=== PATIENT | female | born 1935 | race Caucasian/White ===

== ENCOUNTER → 2017-04-20 | Outpatient (CLI) | payer MEDICARE ==
[~2017-04-20] MED LIST: ACET500T68 PO; AMLO-96 PO; CALC400T65 PO; CALC500T6 PO; CARB-71 PO; ESTR-33 PO; ESTR0.9T14 PO; FLU180SY9 IM; HYDR-2966 PO; HYDR12.556 PO; INDO25OR3 PO; INDO50CA92 PO; LISI20TA29 PO; MULT-865 PO; PNEU0.5D3 IM; TRIA-20 PO
--- NOTE | 2017-04-21 11:06 | RADIOLOGY IMAGING REPORT ---
FACILITY: [facility] [place] PATIENT NAME: OBEY OVALLE : [id number] MR: [id number] V: [id number] EXAM DATE: [id number] ORDERING PHYSICIAN: URI PINZON TECHNOLOGIST: Radha Ghotra PROCEDURE:BILATERAL DIGITAL SCREENING MAMMOGRAM WITH CAD ASSISTED INTERPRETATION AND 3D BREAST TOMOSYNTHESIS. COMPARISON:Prior mammograms dated 04/06/16, 02/20/15, 02/06/14, 01/25/13, 01/19/12 and 01/01/11. INDICATIONS:SCREENING FINDINGS: Moderately dense fibroglandular tissue is seen throughout the breasts. The parenchymal pattern has remained stable when allowing for difference in mammographic technique and patient positioning. There is no evidence of malignant appearing mass, malignant appearing calcification or other secondary sign of malignancy in either breast. A biopsy clip is seen deep central within the left breast unchanged. DIAGNOSTIC CATEGORY 2--BENIGN FINDING. RECOMMENDATIONS: ROUTINE MAMMOGRAM AND CLINICAL EVALUATION. IMPRESSION: BI-RADS 2: No significant abnormality seen. Images were reviewed with R2CAD and 3D breast tomosynthesis. Dictated by: Kia Landa M.D. on 04/20/2017 at 16:47 Transcribed by: ELEANOR on 04/20/2017 at 18:14 Approved by: Kia Landa M.D. on 04/21/2017 at 11:05 [facility]
== END ==
LOC: MAMO 02:10
PROVIDERS: ATTEND Family Medicine
DX: Z12.31 Encounter for screening mammogram for malignant neoplasm of breast (principal)
CPT/HCPCS: 77063; 77067

== ENCOUNTER → 2017-06-02 | Outpatient (CLI) | payer MEDICARE ==
[~2017-06-02] MED LIST changes: +DUL20 PO
[2017-06-02 11:37] LABS: PLATELET COUNT, AUTOMATED 272 K/uL (150-450)
== END ==
LOC: LAB 11:17
PROVIDERS: ATTEND Family Medicine
DX: I10 Essential (primary) hypertension (principal)
CPT/HCPCS: 36415; 82040; 82247; 82310; 82374; 82435; 82565; 82947; 84075; 84132; 84155; 84295; 84450; 84460; 84520; 85025

== ENCOUNTER → 2017-06-25 | Outpatient (CLI) | payer MEDICARE ==
--- NOTE | 2017-06-25 12:56 | RADIOLOGY IMAGING REPORT ---
FACILITY: [facility] PATIENT NAME: Magda Villanueva : 1935 MR: [id number] V: [id number] EXAM DATE: ORDERING PHYSICIAN: URI PINZON TECHNOLOGIST: Location: [facility] Patient: Magda Villanueva : 1935 Visit/Account:[id number] Date of Sevice: 06/25/2017 Exam type: CHEST PA AND LAT History: heavy smoker, hot flashes, cough Comparison: April 20, 2012. Findings: The lungs are free of acute effusions, infiltrates or edema. There are multiple small calcified gran ulomas seen throughout the lungs. This mild hyperinflation. The cardiac silhouette is normal in siz e. There is mild ectasia thoracic aorta and moderate spondylotic changes of the thoracic spine IMPRESSION: 1. Mild hyperinflation lung escalera Multiple calcified granulomas seen throughout the lungs Report Dictated By: Kia Landa MD at 06/25/2017 11:52 AM Report E-Signed By: Kia Landa MD at 06/25/2017 12:53 PM WSN:[email or web address]
== END ==
LOC: RAD 11:16
PROVIDERS: ATTEND Family Medicine
DX: I77.810 Thoracic aortic ectasia (principal); R91.8 Other nonspecific abnormal finding of lung field; M47.894 Other spondylosis, thoracic region
CPT/HCPCS: 71046

== ENCOUNTER → 2017-10-20 | Outpatient (CLI) | payer MEDICARE ==
[~2017-10-20] MED LIST changes: +DULO20CA3 PO; +DULO40CA2 PO; +INDO-23 PO; -INDO50CA92 PO
[2017-10-20 15:50] LABS: PLATELET COUNT, AUTOMATED 229 K/uL (150-450)
== END ==
LOC: LAB 15:28
PROVIDERS: ATTEND Family Medicine
DX: I10 Essential (primary) hypertension (principal); R53.83 Other fatigue
CPT/HCPCS: 36415; 82040; 82247; 82310; 82374; 82435; 82565; 82947; 84075; 84132; 84155; 84295; 84443; 84450; 84460; 84520; 85025

== ENCOUNTER → 2018-02-02 | Outpatient (CLI) | payer MEDICARE ==
[~2018-02-02] MED LIST changes: +AMLO-111 PO; -AMLO-96 PO; +FLU180SY11 IM; +IPRN ENA
== END ==
LOC: LAB 10:20
PROVIDERS: ATTEND Family Medicine
DX: E87.6 Hypokalemia (principal)
CPT/HCPCS: 36415; 82310; 82374; 82435; 82565; 82947; 84132; 84295; 84520

== ENCOUNTER 2018-04-21 18:06 | Inpatient (IN) | payer MEDICARE ==
[~2018-04-21] VITALS: Ht 165.1 cm; Wt 54.4 kg
[~2018-04-21 18:06] MED LIST changes: -NAPR220C12 PO
--- NOTE | 2018-04-21 18:23 | ER Report ---
History and Physical Time Seen By MD: 18:19 HPI/ROS CHIEF COMPLAINT: Dyspnea HISTORY OF PRESENT ILLNESS: 82-year-old female presented urgent care with 4 days of increasing shortness of breath. Patient actually states 1 week of upper respiratory symptoms, which she thought was a cold. Patient has hot flashes since she is on estrogen replacement therapy. She's unsure if she had any fevers. She notes a very congested cough of mostly clear sputum. She notes no leg swelling or chest pain. She notes increased shortness of breath. She is a chronic smoker. Her last pulse ox was 88% at her internal medicine visit back in January of last year. Patient is not on home O2. Patient was seen in urgent care and found to have an elevated troponin to 0.060. She has no previous troponins every. She has no previous EKGs in the system. Per report. Influenza A and B were negative at [facility] urgent care REVIEW OF SYSTEMS: Respiratory: As above Cardiovascular: No chest pain, no palpitations. Gastrointestinal: No vomiting, no abdominal pain. Musculoskeletal: No back pain. Allergies: Coded Allergies: No Known Drug Allergies (Verified , 01/18/12) Home Meds Active Scripts Ipratropium [place] 0.03% Ns (IPRATROPIUM BROMIDE 0.03% NS) 21 Mcg [place], 2 SPRAYS MIRTA 1-2XD for 30 Days, #1 SPRAY Prov:URI PINZON MD 02/02/18 Duloxetine HCl (Duloxetine HCl) 20 Mg Capsule.dr, 2 CAP PO DAILY for 90 Days, #180 CAP 4 Refills Prov:URI PINZON MD 09/13/17 Hydrochlorothiazide (HYDROCHLOROTHIAZIDE) 25 Mg Tablet, 1 TAB PO QDAY for 90 Days, #90 TAB 4 Refills Prov:URI PINZON MD 09/13/17 Lisinopril (LISINOPRIL) 20 Mg Tablet, 1 TAB PO QDAY for 90 Days, #90 TAB 4 Refills Prov:URI PINZON MD 09/13/17 Amlodipine Besylate (AMLODIPINE BESYLATE) 5 Mg Tablet, 1 TAB PO QDAY for 90 Days, #90 TAB 4 Refills Prov:URI PINZON MD 09/13/17 Indomethacin (INDOMETHACIN) 50 Mg Capsule, 1 CAP PO DAILY for 90 Days, #90 CAPSULE Prov:URI PINZON MD 09/08/17 Reported Medications Naproxen Sodium (ALEVE) 220 Mg Capsule, 220 MG PO TID, CAPSULE 04/21/18 Soy Isofla/Blk Cohosh/Mag Bark (Estroven 155 mg Capsule) 155 Mg Capsule 02/15/18 Acetaminophen (TYLENOL EXTRA STRENGTH) 500 Mg Tablet, 1 TAB PO PRN, TAB 03/31/17 Calcium Carbonate (CALCIUM) 500 Mg Tablet, 750 MG PO DAILY 03/31/17 Multivitamin (DAILY MULTIPLE VITAMIN) Unknown Strength Tablet, 1 TAB PO DAILY 10/23/16 Discontinued Reported Medications Carbidopa/Levodopa (SINEMET 25-100 MG TABLET) 1 Each Tablet, 1 EACH PO PRN 10/23/16 Past Medical/Surgical History Past, Family, & Social History Past Medical History Reviewed: Yes Updated: Social Hx Neurologic: Reports hx of: restless leg syndrome Cardiovascular: Reports hx of: hypertension (essential) Respiratory: Reports hx of: COPD Gastrointestinal: Reports hx of: other GI history (hx of colon polyp) Age at menopause: Menopausal sx Musculoskeletal: Reports hx of: osteoarthritis (multiple sistes) other musculoskeletal hx (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, polymyalgia rheumatica possible, sciatica) Infectious disease: Reports hx of: Rheumatic fever (as child) Gastrointestinal: Reports hx of: appendectomy cholecystectomy Gynecologic: Reports hx of: hysterectomy (fibroids, partial ) Musculoskeletal: Reports hx of: total joint replacement (Implants bilaterally in big toe, orthoscopic surgery right knee) Reviewed Nurses Notes: Yes Old Medical Records Reviewed: Yes Hx Smoking: Yes (50 YEARS) Smoking Status: Current: Every Day Smoker Exposure to Second Hand Smoke?: Yes Constitutional Vital Sign - Last 24 Hours 04/21/18 04/21/18 04/21/18 04/21/18 18:20 18:22 18:30 18:36 Temp 98.1 Pulse 120 111 Resp 22 16 B/P (MAP) 137/78 (97) 117/79 117/79 (92) Pulse Ox 77 92 O2 Delivery Room Air 04/21/18 04/21/18 04/21/18 04/21/18 18:44 18:44 18:58 19:00 Pulse 104 Resp 18 B/P (MAP) 107/85 (92) Pulse Ox 93 O2 Delivery Oxy Mask O2 Flow Rate 10.0 10.0 1/31/04/21/18 04/21/18 04/21/18 19:06 19:24 19:30 19:36 Temp 99.0 Pulse 110 107 Resp 16 15 B/P (MAP) 121/62 (81) Pulse Ox 94 95 04/21/18 04/21/18 04/21/18 04/21/18 19:41 20:00 20:11 20:30 Pulse 105 98 Resp 19 17 B/P (MAP) 116/76 (89) 134/77 (96) Pulse Ox 95 95 Physical Exam General Appearance: The patient is alert, has no immediate need for airway protection and no current signs of toxicity. Obvious increased work of breathing. Grossly hypoxic, room. Her pulse ox comes in at 77% here. Patient's placed on a simple mask to supplement her O2. She appears slightly pale. Skin is warm and dry. HEENT: Pupils equal and round no injection. TMs normal, oropharynx with mild erythema, no exudate or petechiae Respiratory: Chest is non tender, bibasilar rails approximately a [address] with faint expiratory wheezing Cardiac: regular rate and rhythm Gastrointestinal: Abdomen is soft and non tender, no masses, bowel sounds normal. Musculoskeletal: Neck: Neck is supple and non tender. No JVD, no lymphadenopathy Extremities have full range of motion and are non tender. No edema, no calf tenderness Skin: No rashes or lesions. DIFFERENTIAL DIAGNOSIS: After history and physical exam differential diagnosis was considered for shortness of breath including but not limited to pulmonary infectious process, COPD, asthma, pulmonary embolus and congestive heart failure. Medical Decision Making Data Points Result Diagram: 04/22/18 0552 04/22/18 0552 Laboratory Hematology Test 04/21/18 18:26 04/21/18 18:28 04/21/18 19:44 D-Dimer Quantitative (PE/DVT) 1.31 ug/ml (0-0.50) B-Type Natriuretic Peptide 320 pg/ml (0-100) Lactate 1.5 mmol/L (0.7-2.1) Troponin I 0.056 ng/ml Chemistry Test 04/21/18 18:26 04/21/18 18:28 04/21/18 19:44 D-Dimer Quantitative (PE/DVT) 1.31 ug/ml (0-0.50) B-Type Natriuretic Peptide 320 pg/ml (0-100) Lactate 1.5 mmol/L (0.7-2.1) Troponin I 0.056 ng/ml Coagulation Test 04/21/18 18:26 D-Dimer Quantitative (PE/DVT) 1.31 ug/ml Microbiology Microbiology Date/Time Source Procedure Growth Status 04/21/18 18:26 Blood Peripheral Draw Blood Culture - Preliminary NO GROWTH AFTER 1 DAY, REINCUBATED Resulted EKG/Imaging EKG Interpretation 12 lead EKG: EKG sent over from urgent care Rhythm: Sinus tachycardia, very faint, difficult interpretation. Due to wandering baseline [place]: normal QRS: normal ST segments: normal, a repeat EKG will be performed here on arrival to the ER. 12 lead EK Rhythm: Sinus tachycardia, rate 109, right bundle branch block pattern [place]: normal QRS: Right bundle branch block pattern ST segments: Nonspecific T and T-wave changes related to right bundle branch block, no old EKGs for comparison Imaging X-ray: Two-view chest x-ray from urgent care today was obtained. I viewed the images myself on the PACS system. My interpretation of the images is: Bilateral faint pulmonary vascular congestion, there are numerous micronodules consistent on her old chest x-ray. Dated 06/25/17. The radiologist interpretation had no clinically significant variation from this interpretation. Results: CT scan of the CTA pulmonary angiogram was obtained. The results of the study are CT ANGIOGRAM OF THE CHEST WITH INTRAVENOUS CONTRAST, PE PROTOCOL DATE OF EXAM: 04/21/2018 19:05 COMPARISON: Chest radiographs June 25, 2017. INDICATION: dyspnea. TECHNIQUE: Contrast enhanced chest CT performed during the injection of 75 ml of Isovue-370. Three-dimensional (MIP) reconstructions were performed. FINDINGS: Negative for pulmonary arterial embolus. Thyroid: The thyroid is irregularly shaped and enlarged with a lobulation extending inferiorly into the mediastinum. There is also notably enlarged lymph node in the anterior mediastinum/thoracic inlet on image 64 series 7. Heart and great vessels: Heart size is normal. Coronary atherosclerosis is prominent. Moderate aortic arch atherosclerosis. Mediastinum and casandra: There is extensive bilateral hilar adenopathy somewhat more prominent on the right than left. Lungs and pleura: Mild to moderate centrilobular emphysema. There are scattered granulomas. Scarring and/or atelectasis in the lingula. No effusion, consolidation, or pneumothorax. Breast and axilla: Breast tissue is not well imaged by CT. Bones and soft tissues: No acute osseous abnormality. Multilevel degenerative findings. Severe right glenohumeral degenerative findings. Multiple intra- articular loose bodies. Upper abdomen: There is reflux of contrast into the hepatic veins. IMPRESSION: 1. Negative for pulmonary arterial embolus. 2. Bulky hilar adenopathy is nonspecific, but a neoplastic etiology is po ssible. Correlate with clinical history thereof and/or consider biopsy. 3. The thyroid is enlarged and irregularly shaped which may reflect a multinodular goiter, but other abnormality is not excluded. Consider nonemergent ultrasound. 4. [id number] centrilobular emphysema. 5. Reflux of contrast into the hepatic veins may be incidental but can be seen with right heart dysfunction. The study was read by the radiologist. I viewed the images myself on the PACS system. ED Course/Re-evaluation Clinical Indication for ER IV: IV Access ED Course Patient was admitted to an examination room. H&P was done. The differential diagnosis was considered. Patient with gross hypoxemia. She's had upper respiratory symptoms for 1 week. She's had difficulty breathing. She is a smoker and continues to smoke. Her studies are suspicious for COPD. However, d-dimer could not be rule out. A CTA pulmonary angiogram was performed and was unremarkable for pulmonary embolism. Patient be admitted to the hospital service for treatment of COPD exacerbation. 04/21/2018 8:29:15 pm case discussed with Dr. Jesus Kramer hospitalist accepts patient for admission. Decision to Disposition Date: Apr 21, 2018 Decision to Disposition Time: 20:21 Depart Departure Latest Vital Signs Vital Signs Date Time Temp Pulse Resp B/P (MAP) Pulse Ox O2 Delivery O2 Flow Rate FiO2 04/21/18 20:30 134/77 (96) 04/21/18 20:11 98 17 95 04/21/18 19:24 99.0 04/21/18 18:58 10.0 04/21/18 18:44 Oxy Mask Impression: Primary Impression: Hypoxia Additional Impressions: Lower respiratory infection COPD exacerbation Leukocytosis Elevated troponin Condition: Improved Disposition: Admitted from ER Referrals: URI PINZON MD (PCP) Problem Qualifiers Additional Impressions: Leukocytosis Leukocytosis type: unspecified Qualified Codes: D72.829 - Elevated white blood cell count, unspecified FIGUEROA MICHAEL DO Apr 21, 2018 18:23
[2018-04-21] MEDS ORDERED: methylPREDNIS SUCC 125 MG/2ML IVP ONE (18:30)
[2018-04-21] MEDS ORDERED: ALBUTEROL/IPRATROPIUM 3 ML NEB NEB ONE (18:30)
[2018-04-21] MEDS ORDERED: ASPIRIN 81 MG CHEW PO ONE (18:40)
[2018-04-21] MEDS ORDERED: NAPR220C12 PO (18:56)
[2018-04-21] MEDS ORDERED: NS(*) 0.9% 50 ML BAG 50 ML ONE (19:18)
[2018-04-21] MEDS ORDERED: IOPAMIDOL 76% 50 ML INFUS BTL 100 ML ONE (19:18)
--- NOTE | 2018-04-21 20:14 | RADIOLOGY IMAGING REPORT ---
FACILITY: [facility] [place] PATIENT NAME: Magda Villanueva : 1935 MR: [id number] V: [id number] EXAM DATE: ORDERING PHYSICIAN: FIGUEROA MICHAEL TECHNOLOGIST: Location: [facility] Patient: Magda Villanueva : 1935 Visit/Account:[id number] Date of Sevice: 04/21/2018 CT ANGIOGRAM OF THE CHEST WITH INTRAVENOUS CONTRAST, PE PROTOCOL DATE OF EXAM: 04/21/2018 19:05 COMPARISON: Chest radiographs June 25, 2017. INDICATION: dyspnea. TECHNIQUE: Contrast enhanced chest CT performed during the injection of 75 ml of Isovue-370. Three-d imensional (MIP) reconstructions were performed. FINDINGS: Negative for pulmonary arterial embolus. Thyroid: The thyroid is irregularly shaped and enlarged with a lobulation extending inferiorly into the mediastinum. There is also notably enlarged lymph node in the anterior mediastinum/thoracic inle t on image 64 series 7. Heart and great vessels: Heart size is normal. Coronary atherosclerosis is prominent. Moderate aor tic arch atherosclerosis. Mediastinum and casandra: There is extensive bilateral hilar adenopathy somewhat more prominent on the r ight than left. Lungs and pleura: Mild to moderate centrilobular emphysema. There are scattered granulomas. Scarri ng and/or atelectasis in the lingula. No effusion, consolidation, or pneumothorax. Breast and axilla: Breast tissue is not well imaged by CT. Bones and soft tissues: No acute osseous abnormality. Multilevel degenerative findings. Severe rig ht glenohumeral degenerative findings. Multiple intra-articular loose bodies. Upper abdomen: There is reflux of contrast into the hepatic veins. IMPRESSION: 1. Negative for pulmonary arterial embolus. 2. Bulky hilar adenopathy is nonspecific, but a neoplastic etiology is possible. Correlate with cli nical history thereof and/or consider biopsy. 3. The thyroid is enlarged and irregularly shaped which may reflect a multinodular goiter, but other abnormality is not excluded. Consider nonemergent ultrasound. 4. Hjvn-rf-[id number] centrilobular emphysema. 5. Reflux of contrast into the hepatic veins may be incidental but can be seen with right heart dysf unction. One of the following dose optimization techniques was utilized in the performance of this exam: Autom ated exposure control; adjustment of the mA and/or kV according to the patient's size; or use of an i terative reconstruction technique. Specific details can be referenced in the facility's radiology C T exam operational policy. Report Dictated By: Jonathan Sepulveda MD at 04/21/2018 7:50 PM Report E-Signed By: Jonathan Sepulveda MD at 04/21/2018 8:10 PM WSN:[email or web address]
[2018-04-21 21:01] VITALS: BP 128/75
[2018-04-21] MEDS ORDERED: INFLUENZA VIRUS VAC 0.5ML SYR IM ONLY ONE (21:45)
[2018-04-21] MEDS ORDERED: ALBUTEROL 2.5 MG/3 ML NEB NEB PRN (21:45)
--- NOTE | 2018-04-21 21:54 | History & Physical ---
History of Present Illness Chief Complaint Shortness of breath History of Present Illness This patient presented to the emergency room complaining of increased shortness of breath over the last several days. She had been placed on nebulizers, but hasn't been getting much relief from these. History Problems: (1) Essential hypertension Home Meds Active Scripts Ipratropium [place] 0.03% Ns (IPRATROPIUM BROMIDE 0.03% NS) 21 Mcg [place], 2 SPRAYS MIRTA 1-2XD for 30 Days, #1 SPRAY Prov:URI PINZON MD 02/02/18 Duloxetine HCl (Duloxetine HCl) 20 Mg Capsule.dr, 2 CAP PO DAILY for 90 Days, #180 CAP 4 Refills Prov:URI PINZON MD 09/13/17 Hydrochlorothiazide (HYDROCHLOROTHIAZIDE) 25 Mg Tablet, 1 TAB PO QDAY for 90 Days, #90 TAB 4 Refills Prov:URI PINZON MD 09/13/17 Lisinopril (LISINOPRIL) 20 Mg Tablet, 1 TAB PO QDAY for 90 Days, #90 TAB 4 Re fills Prov:URI PINZON MD 09/13/17 Amlodipine Besylate (AMLODIPINE BESYLATE) 5 Mg Tablet, 1 TAB PO QDAY for 90 Days, #90 TAB 4 Refills Prov:URI PINZON MD 09/13/17 Indomethacin (INDOMETHACIN) 50 Mg Capsule, 1 CAP PO DAILY for 90 Days, #90 CAPSULE Prov:URI PINZON MD 09/08/17 Reported Medications Naproxen Sodium (ALEVE) 220 Mg Capsule, 220 MG PO TID, CAPSULE 04/21/18 Soy Isofla/Blk Cohosh/Mag Bark (Estroven 155 mg Capsule) 155 Mg Capsule 02/15/18 Acetaminophen (TYLENOL EXTRA STRENGTH) 500 Mg Tablet, 1 TAB PO PRN, TAB 03/31/17 Calcium Carbonate (CALCIUM) 500 Mg Tablet, 750 MG PO DAILY 03/31/17 Multivitamin (DAILY MULTIPLE VITAMIN) Unknown Strength Tablet, 1 TAB PO DAILY 10/23/16 Discontinued Reported Medications Carbidopa/Levodopa (SINEMET 25-100 MG TABLET) 1 Each Tablet, 1 EACH PO PRN 10/23/16 Allergies: Coded Allergies: No Known Drug Allergies (Verified , 01/18/12) Hx Smoking: Yes (50 YEARS, 1.5 PPD) Smoking Status: Current: Every Day Smoker Exposure to Second Hand Smoke?: Yes Caffeine Intake: Coffee, Tea Caffeine/Cups Per Day: 2-3 Hx Alcohol Use: No Social Drug Use: Never Review of Systems All Systems Reviewed/Normal: Yes, Except as Noted Respiratory: Shortness of Breath, Cough, Wheezing Exam Vital Signs Vital Signs Date Time Temp Pulse Resp B/P (MAP) Pulse Ox O2 Delivery O2 Flow Rate FiO2 04/21/18 20:30 134/77 (96) 04/21/18 20:11 98 17 95 04/21/18 19:24 99.0 04/21/18 18:58 10.0 04/21/18 18:44 Oxy Mask Neuro: No Gross deficits Eyes: PERRLA Cardiovascular: Regular Rate and Rhythm Respiratory: Other (Bilateral wheezes) GI: Abd Soft and Non-Tender Extremities: No Edema Integumentary: No Cyanosis Assessment and Plan Problems: (1) COPD exacerbation Status: Acute Assessment & Plan: She did present with increased shortness of breath and wheezing. A CT scan of the chest was negative for infiltrate. She has been started on treatment with IV steroids, nebulizers, and doxycycline. (2) Hilar lymphadenopathy Assessment & Plan: This was noted on her CT scan and was thought to be concerning for malignancy. A biopsy was recommended. (3) Goiter Assessment & Plan: This was also noted on her CT scan. A TSH has been ordered. She will also need a thyroid ultrasound. (4) Essential hypertension Assessment & Plan: She is on chronic treatment with amlodipine, hydrochlorothiazide, and lisinopril. All of these are currently on hold. Copies to: URI PINZON MD ; Venous Thromboembolism Antithrombotics Is Pt On Any Antithrombotics?: No Exam Sepsis Risk: No Definite Risk DENIA GODOY DO Apr 21, 2018 21:54
[2018-04-22] MEDS: methylPREDNIS SUCC 125 MG/2ML IVP SCH ×3 (01:40→17:31)
[2018-04-22 04:40] VITALS: BP 155/82
[2018-04-22] MEDS: ALBUTEROL/IPRATROPIUM 3 ML NEB NEB SCH ×3 (05:52→18:24)
[2018-04-22 06:10] LABS: PLATELET COUNT, AUTOMATED 203 K/uL (150-450)
[2018-04-22 07:21] VITALS: BP 121/69
[2018-04-22] MEDS ORDERED: NS(*) 0.9% 250 ML BAG 250 ML ONE (08:28)
[2018-04-22] MEDS: DOXYCYCLINE HYCL 100 MG VIAL 100 MG in NS(*) 0.9% 250 ML BAG 250 ML IV SCH ×2 (08:32→21:13)
[2018-04-22] MEDS: DULoxetine HCL 20 MG CAPCR PO SCH (08:32)
[2018-04-22] MEDS: ENOXAPARIN 40 MG/0.4ML SYR SC SCH (08:39)
--- NOTE | 2018-04-22 09:53 | EKG ---
FACILITY: [facility] [place] PATIENT NAME: OBEY OVALLE : [id number] MR: [id number] V: [id number] EXAM DATE: ORDERING PHYSICIAN: FIGUEROA MICHAEL TECHNOLOGIST: BABS Test Reason : ABNORMAL EKG Blood Pressure : / mmHG Vent. Rate : 109 BPM Atrial Rate : 109 BPM P-R Int : 152 ms QRS Dur : 138 ms QT Int : 360 ms P-R-T Axes : 071 223 022 degrees QTc Int : 484 ms Sinus tachycardia with premature atrial complexes Biatrial enlargement Right bundle branch block T wave abnormality, consider lateral ischemia Abnormal ECG No previous ECGs available Confirmed by Jonathan Cast ([id number]) on 04/22/2018 9:06:21 PM Referred By: FERNANDA Confirmed By:Jonathan Kay
[2018-04-22 10:55] VITALS: BMI 20.0
[2018-04-22 12:14] VITALS: BP 153/80
--- NOTE | 2018-04-22 14:23 | Hospitalist Progress Note ---
Subjective Progress Notes Subjective 82F admitted for acute on chronic hypoxic respiratory failure. ANTOINETTE overnight, some minimal improvement in symptoms. Patient Complains of: Respiratory: Cough, Shortness of Breath, Wheezing Gastrointestinal: No Nausea, No Vomiting Physical Exam Vital Signs Date Time Temp Pulse Resp B/P (MAP) Pulse Ox O2 Delivery O2 Flow Rate FiO2 04/22/18 12:14 95 20 153/80 (104) 92 Nasal Cannula 04/22/18 10:57 5.0 04/22/18 07:21 98.2 Intake and Output 04/22/18 07:00 Intake Total 300 ml Balance 300 ml Intake Oral 300 ml # Voids 1 General Appearance: Alert, Awake, No Acute Distress Eyes: PERRLA ENT: Normal Cardiovascular: Normal Rhythm & Peripheral Pulses Respiratory: No Respiratory Distress (on supplemental O2, no tachypnea, R lung wheezing) Extremities: Warm, Pulses, Perfused Integumentary: Skin Intact without Lesion / Mass Result Diagram: 04/22/18 0552 04/22/18 0552 Assessment and Plan Problems: (1) COPD exacerbation Status: Acute Assessment & Plan: She did present with increased shortness of breath and wheezing. A CT scan of the chest was negative for infiltrate. She has been started on treatment with IV steroids, nebulizers, and doxycycline. (2) Hilar lymphadenopathy Assessment & Plan: This was noted on her CT scan and was thought to be concerning for malignancy. A biopsy is recommended as outpatient. (3) Goiter Assessment & Plan: This was also noted on her CT scan. A TSH has been ordered. She will also need a thyroid ultrasound. (4) Essential hypertension Assessment & Plan: She is on chronic treatment with amlodipine, hydrochlorothiazide, and lisinopril. All of these are currently on hold. Exam Sepsis Risk: No Definite Risk LERMA QUIANA BURROWS DO Apr 22, 2018 14:23
[2018-04-22 15:25] VITALS: BP 127/82
--- NOTE | 2018-04-22 15:58 | RADIOLOGY IMAGING REPORT ---
FACILITY: [facility] PATIENT NAME: Magda Villanueva : 1935 MR: [id number] V: [id number] EXAM DATE: ORDERING PHYSICIAN: QUIANA BURROWS TECHNOLOGIST: Location: [facility] Patient: Magad Villanueva : 1935 Visit/Account:[id number] Date of Sevice: 04/22/2018 THYROID HISTORY: goiter COMPARISON: CT of the chest April 21, 2018 FINDINGS: SIZE: Right lobe: 4.9 x 1.7 x 1.4 cm Left lobe: 5.2 x 1.8 x 1.7 cm Isthmus: 4.4 mm PARENCHYMA: Heterogeneous NODULES: Right lobe: * Multiple solid nodules are identified throughout the right lobe the only nodule larger than 1 cm m easures 1.1 x 1 x 1 cm contains some internal calcifications and irregular margins and is located in the mid right lobe Left lobe: * In the superior pole there is a partially cystic slightly lobular nodule measuring 1 cm in maximum dimension. * . In the mid to upper left lobe there is a well-circumscribed ovoid hypoechoic nodule measuring 8 mm in maximum dimension. * In the inferior left lobe there is a well-circumscribed ovoid hypoechoic nodule measuring 1.3 cm i n maximum dimension. Also on the inferior left lobe there is a 1.2 cm well-circumscribed hypoechoic nodule Isthmus: * There is an 8 mm well-circumscribed hypoechoic nodule in the isthmus just to the right of midline VASCULARITY: Within normal limits. ADDITIONAL FINDINGS: None. IMPRESSION: There is a 1.1 cm solid nodule with internal calcifications and irregular margins for which ultrasoun d-guided fine-needle aspiration is recommended.. In the inferior left lobe there are two well-circumscribed ovoid hypoechoic nodules measuring 1.2 cm and 1.3 cm for which ultrasound-guided fine-needle aspiration is recommended REFERENCE: 2015 [place] [employer] Management Guidelines for Adult Patients with Thyroid Nodules and D ifferentiated Thyroid Cancer: The [place] [employer] Guidelines Task Force on Thyroid Nodul es and Differentiated Thyroid Cancer. SONOGRAPHIC PATTERNS: * Benign: Purely cystic nodules (no solid component); estimated risk of malignancy <1 percent; no bi opsy recommended. * Very Low Suspicion: Spongiform or partially cystic nodules without any of the sonographic features described in low, intermediate, or high suspicion patterns; estimated risk of malignancy <3 percent; consider FNA at > 2 cm (Observation without FNA is also a reasonable option). * Low Suspicion: Isoechoic or hyperechoic solid nodule, or partially cystic nodule with eccentric so lid areas, without microcalcification, irregular margin or ETE (extra-thyroidal extension), or taller than wide shape; estimated risk of malignancy 5-10 percent; recommend FNA at >1.5 cm. * Intermediate Suspicion: Hypoechoic solid nodule with smooth margins without microcalcifications, E TE (extra-thyroidal extension), or taller than wide shape; estimated risk of malignancy 10-20 percent ; recommend FNA at > 1 cm. * High Suspicion: Solid hypoechoic nodule or solid hypoechoic component of a partially cystic nodule with one or more of the following features: irregular margins (infiltrative, microlobulated), microc alcifications, taller than wide shape, rim calcifications with small extrusive soft tissue component, evidence of ETE (extra-thyroidal extension); estimated risk of malignancy >70-90 percent; recommend FNA at > 1 cm. NOTES: * Although a sonographically suspicious subcentimeter thyroid nodule without evidence of extrathyroi alex extension or sonographically suspicious lymph nodes may be observed with close sonographic follow -up rather than pursuing immediate FNA, patient age and preference may modify decision-making. A > 50% interval increase in nodule volume and/or development of new suspicious sonographic features are felt to be a valid reasons for potential re-aspiration of a nodule previously shown to have benig n FNA cytology. Report Dictated By: Kia Landa MD at 04/22/2018 3:47 PM Report E-Signed By: Kia Landa MD at 3:53 PM [email or web address]
[2018-04-22 18:45] VITALS: BP 124/75
[2018-04-23] MEDS: methylPREDNIS SUCC 125 MG/2ML IVP SCH ×2 (01:40→10:04)
[2018-04-23] MEDS: ALBUTEROL/IPRATROPIUM 3 ML NEB NEB SCH ×3 (05:31→17:28)
[2018-04-23 07:31] VITALS: BP 144/82
[2018-04-23] MEDS: ENOXAPARIN 40 MG/0.4ML SYR SC SCH (10:04)
[2018-04-23] MEDS: DULoxetine HCL 20 MG CAPCR PO SCH (10:04)
[2018-04-23] MEDS ORDERED: diphenhydrAMINE 25 MG CAP PO PRN (10:35)
[2018-04-23] MEDS: DOXYCYCLINE HYCL 100 MG VIAL 100 MG in NS(*) 0.9% 250 ML BAG 250 ML IV SCH ×2 (10:51→23:02)
--- NOTE | 2018-04-23 10:52 | Antimicrobial Stewardship ---
Antimicrobial Time Out Antimicrobial Stewardship MD Service: Hospitalist Indications: Other (COPD exacerbation) Antimicrobial Used Doxycycline 100 mg IVPB q12 hours Culture Results: No (no growth after 2 days) Eligible for PO Conversion Eligable for PO Conversion: No (WBC elevated) BONITA JENKINS Apr 23, 2018 10:51
[2018-04-23] MEDS ORDERED: buPROPion XL 150 MG TABCR PO SCH (12:35)
[2018-04-23] MEDS: VARENICLINE 1 MG TAB PO SCH (13:21)
--- NOTE | 2018-04-23 14:39 | Hospitalist Progress Note ---
Subjective Progress Notes Subjective She reports feeling improved, but still wheezy. She states she wants to quit smoking completely. Physical Exam Vital Signs Date Time Temp Pulse Resp B/P (MAP) Pulse Ox O2 Delivery O2 Flow Rate FiO2 04/23/18 11:11 78 16 04/23/18 11:00 96 High-Flow Nasal Cannula 3.0 04/23/18 07:31 98.2 144/82 (102) Intake and Output 04/23/18 06:59 Intake Total 1550 ml Balance 1550 ml Intake Oral 1020 ml IV Total 530 ml # Voids 4 General Appearance: Alert, Awake Cardiovascular: Regular Rate and Rhythm (distant tones) Respiratory: Other (diminished breath sounds bilaterally with scattered rhonchi and expiratory wheezes) Extremities: Warm, Perfused Result Diagram: 04/22/1855104/22/18551 Assessment and Plan Problems: (1) COPD exacerbation Status: Acute Assessment & Plan: She did present with increased shortness of breath and wheezing. CT scan of the chest was negative for infiltrate. She has been started on treatment with IV steroids, nebulizers, and doxycycline. She has improved, but still has some airway reactivity. (2) Hilar lymphadenopathy Assessment & Plan: This was noted on her CT scan. Will have her follow up as outpatient to discuss monitoring vs. biopsy with her primary care provider. (3) Goiter Status: Chronic Assessment & Plan: This was also noted on her CT scan. TSH is slightly low at 0.26. Will check T4/T3. Her thyroid ultrasound showed three nodules which are slightly larger than 1cm. Will need to have her discuss possible biopsy with her primary care provider. (4) Essential hypertension Assessment & Plan: She is on chronic treatment with amlodipine, hydr ochlorothiazide, and lisinopril. All of these are currently on hold. Her BPs have been only mildly elevated. Will monitor off medications. Exam Sepsis Risk: No Definite Risk BRAULIO BARLOW MD Apr 23, 2018 14:39
[2018-04-23 15:16] VITALS: BP 153/85
[2018-04-23 19:32] VITALS: BP 141/68
[2018-04-23] MEDS ORDERED: methylPREDNIS SUCC 125 MG/2ML IVP SCH (21:00)
--- NOTE | 2018-04-24 02:36 | NUR ---
Patient up to bathroom, noted to have O2 sats of 76 upon return to bed, audibly wheezing. RT called for breathing treatment to be administered. O2 increased to 3LPM via NC. Patient able to rebound to 98% on RA after breathing tx, O2 decreased back to 1.5LPM via NC with sats @ 89%.
[2018-04-24] MEDS: ALBUTEROL/IPRATROPIUM 3 ML NEB NEB SCH (05:19)
[2018-04-24 06:35] LABS: PLATELET COUNT, AUTOMATED 220 K/uL (150-450)
[2018-04-24 07:35] VITALS: BP 135/86
[2018-04-24] MEDS ORDERED: LEVALBUTEROL 1.25 MG/3 ML NEB NEB PRN (08:20)
--- NOTE | 2018-04-24 08:30 | Hospitalist Progress Note ---
Subjective Progress Notes Subjective Still feels very congested and wheezy. Cough is somewhat productive but still tight. No fever of chills. No chest pain. Physical Exam Vital Signs Date Time Temp Pulse Resp B/P (MAP) Pulse Ox O2 Delivery O2 Flow Rate FiO2 04/24/18 07:40 92 Nasal Cannula 2.0 04/24/18 07:35 98.4 75 16 135/86 (102) Intake and Output 04/24/18 07:00 Intake Total 885 ml Balance 885 ml Intake Oral 620 ml IV Total 265 ml # Voids 3 General Appearance: Alert, Awake, No Acute Distress, Afebrile Cardiovascular: Regular Rate and Rhythm, Other (S1S2 are soft. ) Respiratory: Other (Bilateral, diffuse mainly expiratory wheezing and ronchi.) GI: Soft and Non-Tender Extremities: Soft and Non Tender, Warm Psych: Alert & Oriented X3, Appropriate Mood & Affect Result Diagram: 04/24/1860004/24/18600 Assessment and Plan Problems: (1) COPD exacerbation Status: Acute Assessment & Plan: She did present with increased shortness of breath and wheezing. CT scan of the chest was negative for infiltrate. She was started on treatment with IV steroids, nebulizers, and doxycycline. She has improved, but still has significant airway reactivity. WBC's are 20,000+ probably due to IV steroids. Will switch all meds to po and continue doxycycline 100 mg bid. Switch nebs to Xopenex and add mucinex 600 mg bid., start oral prednisone. (2) Hilar lymphadenopathy Assessment & Plan: This was noted on her CT scan. Will have her follow up as outpatient to discuss monitoring vs. biopsy with her primary care provider. (3) Goiter Status: Chronic Assessment & Plan: This was also noted on her CT scan. TSH is slightly low at 0.26. Will check T4/T3. Her thyroid ultrasound showed three nodules which are slightly larger than 1cm. Will need to have her discuss possible biopsy with her primary care provider. (4) Essential hypertension Assessment & Plan: She is on chronic treatment with amlodipine, hydrochlorothiazide, and lisinopril. All of these are currently on hold. Her BPs have been only mildly elevated. Will monitor off medications. Time Spent on Plan of Care: > 30 min Exam Sepsis Risk: No Definite Risk JAQUELINE MILNER MD FACP Apr 24, 2018 08:30
[2018-04-24] MEDS ORDERED: predniSONE 20 MG TAB PO ONE (09:00)
[2018-04-24] MEDS: guaiFENesin 600 MG TABCR PO SCH ×2 (09:04→20:35)
[2018-04-24] MEDS: DULoxetine HCL 20 MG CAPCR PO SCH (09:04)
[2018-04-24] MEDS: DOXYCYCLINE HYCL 100 MG TAB PO SCH ×2 (09:05→20:35)
[2018-04-24] MEDS: VARENICLINE 1 MG TAB PO SCH (09:05)
[2018-04-24 11:08] VITALS: BP 153/65
[2018-04-24 11:09] VITALS: Ht 165.1 cm; Wt 54.4 kg
[2018-04-24] MEDS: LEVALBUTEROL 1.25 MG/3 ML NEB NEB SCH ×2 (11:20→17:49)
[2018-04-24 15:15] VITALS: BP 162/81
[2018-04-24] MEDS: predniSONE 20 MG TAB PO SCH (17:06)
[2018-04-24 18:49] VITALS: BP 167/90
[2018-04-25 04:08] VITALS: BP 152/88
[2018-04-25] MEDS: LEVALBUTEROL 1.25 MG/3 ML NEB NEB SCH ×2 (05:10→11:24)
[2018-04-25 06:05] LABS: PLATELET COUNT, AUTOMATED 221 K/uL (150-450)
[2018-04-25 07:35] VITALS: BP 154/79
[2018-04-25] MEDS: VARENICLINE 1 MG TAB PO SCH (08:33)
[2018-04-25] MEDS: guaiFENesin 600 MG TABCR PO SCH (08:33)
[2018-04-25] MEDS: DOXYCYCLINE HYCL 100 MG TAB PO SCH (08:33)
[2018-04-25] MEDS: predniSONE 20 MG TAB PO SCH (08:33)
[2018-04-25] MEDS: DULoxetine HCL 20 MG CAPCR PO SCH (08:33)
[2018-04-25] MEDS ORDERED: amLODIPine BESYL(*) 5 MG TAB PO SCH (09:45)
[2018-04-25 10:46] VITALS: BP 153/79
[2018-04-25] MEDS ORDERED: DOXY-179 PO (13:40)
[2018-04-25] MEDS ORDERED: PRED-1 PO (13:40)
[2018-04-25] MEDS ORDERED: GUAI600T57 PO (13:43)
--- NOTE | 2018-04-25 13:50 | Hospitalist Depart ---
Discharge Summary Reason for Hosp/Final Diag: (1) COPD exacerbation Status: Acute Hospital Course & Plan: She did present with increased shortness of breath and wheezing. CT scan of the chest was negative for infiltrate. She was started on treatment with IV steroids, nebulizers, and doxycycline. She has improved. W BC's are 20,000+ probably due to IV steroids. No on oral prednisone and doxycycline 100 mg bid. (2) Hilar lymphadenopathy Hospital Course & Plan: This was noted on her CT scan. Will have her follow up as outpatient to discuss monitoring vs. biopsy with her primary care provider. (3) Goiter Status: Chronic Hospital Course & Plan: This was also noted on her CT scan. TSH is slightly lo w at 0.26. Will check T4/T3. Her thyroid ultrasound showed three nodules which are slightly larger than 1cm. Will need to have her discuss possible biopsy with her primary care provider. (4) Essential hypertension Hospital Course & Plan: She is on chronic treatment with amlodipine, hydrochlorothiazide, and lisinopril. Off of all until today. Amlodipine restarted. She will restart hydrochlorothiazide, and lisinopril tomorrow. Departure Weight (Pounds): 120 Result Diagram: 04/25/1851904/24/18600 Item Value Date Time Neutrophils % (Manual) 72 % 04/22/18 0552 Neutrophils % (Manual) 68 % 04/24/18 0601 Band Neutrophils % 12 % 04/24/18 06 Band Neutrophils % 17 % 04/22/18 0552 Lymphocytes % (Manual) 7 % L 04/22/18 0552 Lymphocytes % (Manual) 14 % L 04/24/18 0601 White Blood Count 12.3 k/uL H 04/22/18 0552 White Blood Count 20.1 k/uL H 04/24/18 0601 White Blood Count 17.3 k/uL H 04/25/18 0520 Neutrophils (%) (Auto) 72.1 % 04/25/18 05 Lymphocytes (%) (Auto) 18.7 % 04/25/18 05 Monocytes (%) (Auto) 8.5 % 04/25/18 05 Eosinophils (%) (Auto) 0.1 % L 04/25/18 05 Basophils (%) (Auto) 0.6 % 04/25/18 0520 Thyroid Stimulating Hormone (TSH) 0.26 uIU/ml L 04/22/18 0552 Thyroxine (T4) 7.8 ug/dl 04/24/18 0601 B-Type Natriuretic Peptide 320 pg/ml H 04/21/181825 Troponin I 0.056 ng/ml 04/21/181943 Lactate 1.5 mmol/L 04/21/188 Total Bilirubin 0.5 mg/dl 04/24/18 0601 Aspartate Amino Transf (AST/SGOT) 25 U/L 04/24/18 0601 Alanine Aminotransferase (ALT/SGPT) 46 U/L 04/24/18 0601 Alkaline Phosphatase 90 U/L 04/24/18 0601 D-Dimer Quantitative (PE/DVT) 1.31 ug/ml H 04/21/181825 Sodium Level 141 mmol/L 04/22/18 0552 Potassium Level 3.7 mmol/L 04/22/18 0552 Chloride Level 108 mmol/L H 04/22/18 0552 Carbon Dioxide Level 28 mmol/L 04/22/18 0552 Blood Urea Nitrogen 29 mg/dl H 04/22/18 0552 Creatinine 0.70 mg/dl 04/22/18 0552 Glomerular Filtration Rate Calc > 60.0 04/22/18 0552 White Blood Count 18.2 k/uL H 04/21/181825 Neutrophils (%) (Auto) 90.4 % H 04/21/181825 Imaging 04/22/18 Thyroid US - There is a 1.1 cm solid nodule with internal calcifications and irregular margins for which ultrasound-guided fine-needle aspiration is recommended.. In the inferior left lobe there are two well-circumscribed ovoid hypoechoic nodules measuring 1.2 cm and 1.3 cm for which ultrasound-guided fine-needle aspiration is recommended 04/21/18 Chest CTA - 1. Negative for pulmonary arterial embolus. 2. Bulky hilar adenopathy is nonspecific, but a neoplastic etiology is possible. Correlate with clinical history thereof and/or consider biopsy. 3. The thyroid is enlarged and irregularly shaped which may reflect a multinodular goiter, but other abnormality is not excluded. Consider nonemergent ultrasound. 4. [id number] centrilobular emphysema. 5. Reflux of contrast into the hepatic veins may be incidental but can be seen with right heart dysfunction. Condition: Improved Discharge: Home Discharge Instructions Home Meds Active Scripts Ipratropium/Albuterol Sulfate (IPRAT-ALBUT 0.5-3(2.5) MG/3 ML) 3 Ml Ampul.neb, 3 ML IH TID PRN for SHORTNESS OF BREATH, #1 Prov:HILL HAMMONDS MD 04/25/18 Varenicline Tartrate (CHANTIX) 1 Each Tab.ds.pk, 1 EACH PO 1-2x/daily, #1 take per directions from starter pack Prov:HILL HAMMONDS MD 04/25/18 Guaifenesin (MUCINEX) 600 Mg Tablet.er, 600 MG PO BID, #10 Prov:HILL HAMMONDS MD 04/25/18 Prednisone 10 Mg Tab (PREDNISONE 10 MG TAB) 10 Mg Tablet, 10-20 MG PO 1- 2x/daily, #30 TAB 2 pills twice daily for 3 days, then 2 daily for 3 days, then 1 daily for 3 days, then 0.5 daily for 4 days Prov:HILL HAMMONDS MD 04/25/18 Doxycycline Hyclate (DOXYCYCLINE HYCLATE) 100 Mg Tablet, 100 MG PO BID, #7 Prov:HILL HAMMONDS MD 04/25/18 Ipratropium [place] 0.03% Ns (IPRATROPIUM BROMIDE 0.03% NS) 21 Mcg [place], 2 SPRAYS MIRTA 1-2XD for 30 Days, #1 SPRAY Prov:URI PINZON MD 02/02/18 Duloxetine HCl (Duloxetine HCl) 20 Mg Capsule.dr, 2 CAP PO DAILY for 90 Days, #180 CAP 4 Refills Prov:URI PINZON MD 09/13/17 Hydrochlorothiazide (HYDROCHLOROTHIAZIDE) 25 Mg Tablet, 1 TAB PO QDAY for 90 Days, #90 TAB 4 Refills Prov:URI PINZON MD 09/13/17 Lisinopril (LISINOPRIL) 20 Mg Tablet, 1 TAB PO QDAY for 90 Days, #90 TAB 4 Refills Prov:URI PINZON MD 09/13/17 Amlodipine Besylate (AMLODIPINE BESYLATE) 5 Mg Tablet, 1 TAB PO QDAY for 90 Days, #90 TAB 4 Refills Prov:URI PINZON MD 09/13/17 Indomethacin (INDOMETHACIN) 50 Mg Capsule, 1 CAP PO DAILY for 90 Days, #90 CAPSULE Prov:URI PINZON MD 09/08/17 Reported Medications Soy Isofla/Blk Cohosh/Mag Bark (Estroven 155 mg Capsule) 155 Mg Capsule 02/15/18 Acetaminophen (TYLENOL EXTRA STRENGTH) 500 Mg Tablet, 1 TAB PO Q8H PRN for pain/fever, TAB 03/31/17 Calcium Carbonate (CALCIUM) 500 Mg Tablet, 750 MG PO DAILY 03/31/17 Multivitamin (DAILY MULTIPLE VITAMIN) Unknown Strength Tablet, 1 TAB PO DAILY 10/23/16 Discontinued Reported Medications Naproxen Sodium (ALEVE) 220 Mg Capsule, 220 MG PO TID, CAPSULE 04/21/18 Carbidopa/Levodopa (SINEMET 25-100 MG TABLET) 1 Each Tablet, 1 EACH PO PRN 10/23/16 Diet: Regular Activity: As Tolerated Special Instructions: Follow up with your PCP in 1-2 weeks to check on your O2 requirement, work of breathing, and consider scheduling a needle biopsy of thyroid nodules. Copies to: URI PINZON MD ; Venous Thromboembolism Antithrombotics Is Pt On Any Antithrombotics?: HILL Mena MD Apr 25, 2018 13:50
[2018-04-25 15:30] VITALS: BP 146/86
[2018-04-25] MEDS ORDERED: VARE1TAB3 PO (15:30)
[2018-04-25] MEDS ORDERED: IPRA3AMP10 IH (15:36)
== END 2018-04-25 16:11 | disposition home or self-care (01) | DRG 192 ==
LOC: ER 18:32 → MED 20:35
PROVIDERS: ADMIT Family Medicine; ATTEND Family Medicine
DX: J44.1 Chronic obstructive pulmonary disease with (acute) exacerbation (principal); E04.9 Nontoxic goiter, unspecified; I10 Essential (primary) hypertension; G25.81 Restless legs syndrome; F17.210 Nicotine dependence, cigarettes, uncomplicated; Z90.49 Acquired absence of other specified parts of digestive tract; Z90.710 Acquired absence of both cervix and uterus
CPT/HCPCS: 36415; 71275; 76536; 82040; 82247; 82310; 82374; 82435; 82565; 82947; 83605; 83880; 84075; 84132; 84155; 84295; 84436; 84443; 84450; 84460; 84481; 84484; 84520; 85025; 85379; 87040; 93005; 94640; 94667; 96374; 99284; J1650; J2930; J3490; J7050; J7512; J7613; Q0163; Q9967

== ENCOUNTER → 2018-04-21 | Outpatient (REF) | payer MEDICARE ==
[~2018-04-21] MED LIST changes: -AMLO-111 PO; +AMLO-125 PO; +NAPR220C12 PO; +SOY155CA
[2018-04-21 18:41] LABS: PLATELET COUNT, AUTOMATED 209 K/uL (150-450)
== END ==
PROVIDERS: ATTEND Nurse Practitioner Family
DX: R06.02 Shortness of breath (principal)
CPT/HCPCS: 82040; 82247; 82310; 82374; 82435; 82565; 82947; 84075; 84132; 84155; 84295; 84450; 84460; 84484; 84520; 85025

== ENCOUNTER 2018-04-25 12:49 | Outpatient (RCR) | payer MEDICARE ==
[2018-04-24 11:09] VITALS: BMI 20.0
[~2018-04-25 12:49] MED LIST changes: +NAPR220C12 PO
[2018-04-25] MEDS ORDERED: PRED-1 PO (13:40)
[2018-04-25] MEDS ORDERED: DOXY-179 PO (13:40)
[2018-04-25] MEDS ORDERED: GUAI600T57 PO (13:43)
[2018-04-25] MEDS ORDERED: VARE1TAB3 PO (15:30)
[2018-04-25] MEDS ORDERED: IPRA3AMP10 IH (15:36)
--- NOTE | 2018-04-26 10:38 | Transitional Care Management ---
Assessment Visit Type: Telephone Visit Spoke with: "Van" Respiratory: WNL Except Respiratory Comment: as home O2 setup and nebs. Review s/s to report. GI: Nutrition: WNL Except GI Comment: 04/26 Enc fluids to keep secretions thin and hi ja for exertional work of breathing. Denies NVD with atb Musculoskeletal, Exercise: WNL Except Musculoskeletal, Excercise Com: 2 little weak but, has energy and wants to do things around the house. Enc not to overexert and schedule rest Integumentary: WNL Except Integumentary Comment: 04/26 cont. to have itchy skin. Enc lotion in a tub like cetaphil or cerve to moisturize Pain/Management: WNL Except Pain/Management Comment: 04/26 MD evelin hernandez and she has removed it from her meds. can use tylenol Scheduled Follow-Up with Provi: Yes (has appt 05/03 with Jenaro) Community Resources/HHC: 04/26 review pulm rehab classes and suggested she consider this for when she is better Needed or Pending Tests: Yes (thyroid fine needle biopsy) TCM Discharge Criteria Medication Knowledge: 04/26 has meds filled and ordered refills of previous meds.Has prednisone tapering does on a calendar and med box to ensure she is following direction. Disease Management/Concern/Wha: COPD exacerbation Transitional Care Comment: 04/22 discussed COPD, gave handouts, discussed breathing techniques, definition of COPD, green/yellow/red zones. Discussed that she might go home on oxygen, safety for oxygen, needs to stop smoking (family has also been telling her to stop smoking). She seems discouraged about stopping smoking but willing to try. Talked about steroids and that she might go home on them as well as inhalers or nebulizers. She states she has someone that comes in to help her with meals and things around the house. She does not feel that she will need any other assistance when she goes home. Admitted to program. 04/25 pt will likely go home today, she has started prednisone and chantix, education done on both. She states the chantix is helping but she still has thoughts of smoking occationally. She reports being ready for discharge and has no questions. 04/26 Using chantix and doing diversional activities so she doesn't smoke. Had second person present with dc instruct yesterday and states they have no questions on instruct. Needed prompting on noting s/s to report to MD and states she has no s/s. Agree to f/u call next week RUIZ DE LA ROSA Apr 26, 2018 10:38
--- NOTE | 2018-05-03 14:55 | Transitional Care Management ---
Assessment Visit Type: Telephone Visit Spoke with: Gaudencio Cardiac: WNL Respiratory: WNL Except Respiratory Comment: as home O2 setup and nebs. Review s/s to report. 05/03 Reviewed S/S to report. She gets a little SOB with activity, I encouraged her to pace her activities through the day. GI: Nutrition: WNL Except GI Comment: 04/26 Enc fluids to keep secretions thin and hi ja for exertional work of breathing. Denies NVD with atb Wt Gain/Loss: WNL Constipation?: No : WNL Musculoskeletal, Exercise: WNL Except Musculoskeletal, Excercise Com: 04/26 little weak but, has energy and wants to do things around the house. Enc not to overexert and schedule rest 05/03 She cleaned her house today. I recommended break periods. Mobility/Falls: WNL Integumentary: WNL Except Integumentary Comment: 04/26 cont. to have itchy skin. Enc lotion in a tub like cetaphil or cerve to moisturize Feeling of Well Being: WNL Feeling of Well Being Comment: 05/03 I have a caregiver that comes in and helps me with some stuff. We get along pretty well. Pain/Management: WNL Except Pain/Management Comment: 04/26 MD evelin hernandez and she has removed it from her meds. can use tylenol Scheduled Follow-Up with Pro[facility]: Yes (has appt 05/04 with Jenaro) Community Resources/HHC: 04/26 review pulm rehab classes and suggested she consider this for when she is better Needed or Pending Tests: Yes (thyroid fine needle biopsy) Following Discharge Instructio: Yes TCM Discharge Criteria Medication Knowledge: 04/26 has meds filled and ordered refills of previous meds.Has prednisone tapering does on a calendar and med box to ensure she is following direction. Disease Management/Concern/Wha: COPD exacerbation Transitional Care Comment: 04/22 discussed COPD, gave handouts, discussed breathing techniques, definition of COPD, green/yellow/red zones. Discussed that she might go home on oxygen, safety for oxygen, needs to stop smoking (family has also been telling her to stop smoking). She seems discouraged about stopping smoking but willing to try. Talked about steroids and that she might go home on them as well as inhalers or nebulizers. She states she has someone that comes in to help her with meals and things around the house. She does not feel that she will need any other assistance when she goes home. Admitted to program. 2/ pt will likely go home today, she has started prednisone and chantix, education done on both. She states the chantix is helping but she still has thoughts of smoking occationally. She reports being ready for discharge and has no questions. 04/26 Using chantix and doing diversional activities so she doesn't smoke. Had second person present with dc instruct yesterday and states they have no questions on instruct. Needed prompting on noting s/s to report to MD and states she has no s/s. Agree to f/u call next week 05/03 She feels well, cleaned house today with mild SOB. She has an appt with Dr Eason tomorrow. Has not smoked, Chantix is working well. JEFF SANDOVAL May 03, 2018 14:55
[2018-05-04] MEDS ORDERED: IPRA3AMP10 IH (14:41)
--- NOTE | 2018-05-23 13:56 | Transitional Care Management ---
Assessment Cardiac: WNL Respiratory: WNL Except Respiratory Comment: as home O2 setup and nebs. Review s/s to report. 05/03 Reviewed S/S to report. She gets a little SOB with activity, I encouraged her to pace her activities through the day. GI: Nutrition: WNL Except GI Comment: 04/26 Enc fluids to keep secretions thin and hi ja for exertional work of breathing. Denies NVD with atb Wt Gain/Loss: WNL Constipation?: No : WNL Musculoskeletal, Exercise: WNL Except Musculoskeletal, Excercise Com: 04/26 little weak but, has energy and wants to do things around the house. Enc not to overexert and schedule rest 05/03 She cleaned her house today. I recommended break periods. Mobility/Falls: WNL Integumentary: WNL Except Integumentary Comment: 04/26 cont. to have itchy skin. Enc lotion in a tub like cetaphil or cerve to moisturize Feeling of Well Being: WNL Feeling of Well Being Comment: 05/03 I have a caregiver that comes in and helps me with some stuff. We get along pretty well. Pain/Management: WNL Except Pain/Management Comment: 04/26 MD evelin hernandez and she has removed it from her meds. can use tylenol Scheduled Follow-Up with Provi: Yes (has appt 05/04 with Jenaro) Community Resources/HHC: 04/26 review pulm rehab classes and suggested she consider this for when she is better Needed or Pending Tests: Yes (thyroid fine needle biopsy) Following Discharge Instructio: Yes TCM Discharge Criteria Medication Knowledge: 04/26 has meds filled and ordered refills of previous meds.Has prednisone tapering does on a calendar and med box to ensure she is following direction. Disease Management/Concern/Wha: COPD exacerbation Transitional Care Comment: 04/22 discussed COPD, gave handouts, discussed breathing techniques, definition of COPD, green/yellow/red zones. Discussed that she might go home on oxygen, safety for oxygen, needs to stop smoking (family has also been telling her to stop smoking). She seems discouraged about stopping smoking but willing to try. Talked about steroids and that she might go home on them as well as inhalers or nebulizers. She states she has someone that comes in to help her with meals and things around the house. She does not feel that she will need any other assistance when she goes home. Admitted to program. 04/25 pt will likely go home today, she has started prednisone and chantix, education done on both. She states the chantix is helping but she still has thoughts of smoking occationally. She reports being ready for discharge and has no questions. 04/26 Using chantix and doing diversional activities so she doesn't smoke. Had second person present with dc instruct yesterday and states they have no questions on instruct. Needed prompting on noting s/s to report to MD and states she has no s/s. Agree to f/u call next week 05/03 She feels well, cleaned house today with mild SOB. She has an appt with Dr Eason tomorrow. Has not smoked, Chantix is working well. 05/12 no answer, left message 05/23 No answer, left message CAREN VACA May 23, 2018 13:56
--- NOTE | 2018-05-23 15:26 | Transitional Care Management ---
Assessment Visit Type: Telephone Visit (05/23 Gaudencio) Cardiac: WNL Respiratory: WNL Except Respiratory Comment: as home O2 setup and nebs. Review s/s to report. 05/03 Reviewed S/S to report. She gets a little SOB with activity, I encouraged her to pace her activities through the day. 05/23 Disappointed that she isn't getting better faaster. Still gets SOB with Activity. Still using O2 and nebs GI: Nutrition: WNL Except GI Comment: 04/26 Enc fluids to keep secretions thin and hi ja for exertional work of breathing. Denies NVD with atb Wt Gain/Loss: WNL Constipation?: No : WNL Musculoskeletal, Exercise: WNL Except Musculoskeletal, Excercise Com: 04/26 little weak but, has energy and wants to do things around the house. Enc not to overexert and schedule rest 05/03 She cleaned her house today. I recommended break periods. 05/22 trying to resume normal living but seems to have to take freq restr periods Mobility/Falls: WNL Integumentary: WNL Except Integumentary Comment: 04/26 cont. to have itchy skin. Enc lotion in a tub like cetaphil or cerve to moisturize 05/23 itching has gotten a little better-continues to us lotion freq Feeling of Well Being: WNL Feeling of Well Being Comment: 05/03 I have a caregiver that comes in and helps me with some stuff. We get along pretty well. Pain/Management: WNL Except Pain/Management Comment: 04/26 MD evelin hernandez and she has removed it from her meds. can use tylenol Scheduled Follow-Up with Provi: Yes (has appt 05/04 with Bjore05/23 has been following up with [place]) Community Resources/HHC: 04/26 review pulm rehab classes and suggested she consider this for when she is better Needed or Pending Tests: Yes (thyroid fine needle biopsy) Following Discharge Instructio: Yes TCM Discharge Criteria Medication Knowledge: 04/26 has meds filled and ordered refills of previous meds.Has prednisone tapering does on a calendar and med box to ensure she is following direction. 05/23 went over her meds- She has no quietins Disease Management/Concern/Wha: COPD exacerbation Red/Yellow Flags: 05/23 went over the yellow and red flags of COPD Transitional Care Comment: 04/22 discussed COPD, gave handouts, discussed breathing techniques, definition of COPD, green/yellow/red zones. Discussed that she might go home on oxygen, safety for oxygen, needs to stop smoking (family has also been telling her to stop smoking). She seems discouraged about stopping smoking but willing to try. Talked about steroids and that she might go home on them as well as inhalers or nebulizers. She states she has someone that comes in to help her with meals and things around the house. She does not feel that she will need any other assistance when she goes home. Admitted to program. 04/25 pt will likely go home today, she has started prednisone and chantix, education done on both. She states the chantix is helping but she still has thoughts of smoking occationally. She reports being ready for discharge and has no questions. 04/26 Using chantix and doing diversional activities so she doesn't smoke. Had second person present with dc instruct yesterday and states they have no questions on instruct. Needed prompting on noting s/s to report to MD and states she has no s/s. Agree to f/u call next week 05/03 She feels well, cleaned house today with mild SOB. She has an appt with Dr Eason tomorrow. Has not smoked, Chantix is working well. 05/12 no answer, left message 05/23 No answer, left message 05/23 Has been taking Chantex-has not smoked for 1 month. Misses it sometimes but that is getting better. CAREN VACA May 23, 2018 15:26
--- NOTE | 2018-05-30 14:20 | Transitional Care Management ---
Assessment Visit Type: Telephone Visit (05/30 Gaudencio) Cardiac: WNL Respiratory: WNL Except Respiratory Comment: as home O2 setup and nebs. Review s/s to report. 05/03 Reviewed S/S to report. She gets a little SOB with activity, I encouraged her to pace her activities through the day. 05/23 Disappointed that she isn't getting better faster. Still gets SOB with Activity. Still using O2 and nebs 05/30 Still wearing O2 12/[address] hopes [address] Dr she will take her off during the day. GI: Nutrition: WNL Except GI Comment: 04/26 Enc fluids to keep secretions thin and hi ja for exertional work of breathing. Denies NVD with atb Wt Gain/Loss: WNL Constipation?: No : WNL Musculoskeletal, Exercise: WNL Except Musculoskeletal, Excercise Com: 04/26 little weak but, has energy and wants to do things around the house. Enc not to overexert and schedule rest 05/03 She cleaned her house today. I recommended break periods. 05/22 trying to resume normal living but seems to have to take freq rest periods 05/30 GEts a little SOB when moving around but trys to resume her daily living as musch as possible Mobility/Falls: WNL Integumentary: WNL Except Integumentary Comment: 04/26 cont. to have itchy skin. Enc lotion in a tub like cetaphil or cerve to moisturize 05/23 itching has gotten a little better-continues to us lotion freq 05/30 itching is much improved Feeling of Well Being: WNL Feeling of Well Being Comment: 05/03 I have a caregiver that comes in and helps me with some stuff. We get along pretty well. 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 Pain/Management: WNL Except Pain/Management Comment: 04/26 MD evelin hernandez and she has removed it from her meds. can use tylenol Scheduled Follow-Up with Provi: Yes (has appt 05/04 with [facility]05/23 has been following up with [place] 05/[address] Eason on 06/16) Community Resources/HHC: 04/26 review pulm rehab classes and suggested she consider this for when she is better Needed or Pending Tests: Yes (thyroid fine needle biopsy) Following Discharge Instructio: Yes TCM Discharge Criteria Medication Knowledge: 04/26 has meds filled and ordered refills of previous meds.Has prednisone tapering does on a calendar and med box to ensure she is following direction. 05/23 went over her meds- She has no quietins Disease Management/Concern/Wha: COPD exacerbation Red/Yellow Flags: 05/23 went over the yellow and red flags of COPD Transitional Care Comment: 04/22 discussed COPD, gave handouts, discussed breathing techniques, definition of COPD, green/yellow/red zones. Discussed that she might go home on oxygen, safety for oxygen, needs to stop smoking (family has also been telling her to stop smoking). She seems discouraged about stopping smoking but willing to try. Talked about steroids and that she might go home on them as well as inhalers or nebulizers. She states she has someone that comes in to help her with meals and things around the house. She does not feel that she will need any other assistance when she goes home. Admitted to program. 04/25 pt will likely go home today, she has started prednisone and chantix, education done on both. She states the chantix is helping but she still has thoughts of smoking occationally. She reports being ready for discharge and has no questions. 04/26 Using chantix and doing diversional activities so she doesn't smoke. Had second person present with dc instruct yesterday and states they have no questions on instruct. Needed prompting on noting s/s to report to MD and states she has no s/s. Agree to f/u call next week 05/03 She feels well, cleaned house today with mild SOB. She has an appt with Dr Eason tomorrow. Has not smoked, Chantix is working well. 05/12 no answer, left message 05/23 No answer, left message 05/23 Has been taking Chantex-has not smoked for 1 month. Misses it sometimes but that is getting better. 05/30 Feels like she is improving. No smoking. Hopes to stop using O2 throught the day time. She will have her cargiver check her O2 sats whith the O2 off while sitting and after a short walk afterward and document to take to her appointmen in a couple of weeks CAREN VACA May 30, 2018 14:20
--- NOTE | 2018-06-14 12:39 | Transitional Care Management ---
Assessment Visit Type: Telephone Visit Cardiac: WNL Respiratory: WNL Except Respiratory Comment: as home O2 setup and nebs. Review s/s to report. 05/03 Reviewed S/S to report. She gets a little SOB with activity, I encouraged her to pace her activities through the day. 05/23 Disappointed that she isn't getting better faster. Still gets SOB with Activity. Still using O2 and nebs 05/30 Still wearing O2 12/[address] hopes [address] the Dr she will take her off during the day. GI: Nutrition: WNL Except GI Comment: 04/26 Enc fluids to keep secretions thin and hi ja for exertional work of breathing. Denies NVD with atb Wt Gain/Loss: WNL Constipation?: No : WNL Musculoskeletal, Exercise: WNL Except Musculoskeletal, Excercise Com: 04/26 little weak but, has energy and wants to do things around the house. Enc not to overexert and schedule rest 05/03 She cleaned her house today. I recommended break periods. 05/22 trying to resume normal living but seems to have to take freq rest periods 05/30 GEts a little SOB when moving around but trys to resume her daily living as musch as possible Mobility/Falls: WNL Integumentary: WNL Except Integumentary Comment: 04/26 cont. to have itchy skin. Enc lotion in a tub like cetaphil or cerve to moisturize 05/23 itching has gotten a little better-continues to us lotion freq 05/30 itching is much improved Feeling of Well Being: WNL Feeling of Well Being Comment: 05/03 I have a caregiver that comes in and helps me with some stuff. We get along pretty well. 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 Pain/Management: WNL Except Pain/Management Comment: 04/26 MD evelin hernandez and she has removed it from her meds. can use tylenol Scheduled Follow-Up with Provi: Yes (has appt 05/04 with Jenaro05/23 has been following up with [place] 05/[address] Pinzon on 06/16) Community Resources/HHC: 04/26 review pulm rehab classes and suggested she consider this for when she is better Needed or Pending Tests: Yes (thyroid fine needle biopsy) Following Discharge Instructio: Yes TCM Discharge Criteria Medication Knowledge: 04/26 has meds filled and ordered refills of previous meds.Has prednisone tapering does on a calendar and med box to ensure she is following direction. 05/23 went over her meds- She has no quietins Disease Management/Concern/Wha: COPD exacerbation Red/Yellow Flags: 05/23 went over the yellow and red flags of COPD Transitional Care Comment: 04/22 discussed COPD, gave handouts, discussed breathing techniques, definition of COPD, green/yellow/red zones. Discussed that she might go home on oxygen, safety for oxygen, needs to stop smoking (family has also been telling her to stop smoking). She seems discouraged about stopping smoking but willing to try. Talked about steroids and that she might go home on them as well as inhalers or nebulizers. She states she has someone that comes in to help her with meals and things around the house. She does not feel that she will need any other assistance when she goes home. Admitted to program. 04/25 pt will likely go home today, she has started prednisone and chantix, education done on both. She states the chantix is helping but she still has thoughts of smoking occationally. She reports being ready for discharge and has no questions. 04/26 Using chantix and doing diversional activities so she doesn't smoke. Had second person present with dc instruct yesterday and states they have no questions on instruct. Needed prompting on noting s/s to report to MD and states she has no s/s. Agree to f/u call next week 05/03 She feels well, cleaned house today with mild SOB. She has an appt with Dr Pinzon tomorrow. Has not smoked, Chantix is working well. 05/12 no answer, left message 05/23 No answer, left message 05/23 Has been taking Chantex-has not smoked for 1 month. Misses it sometimes but that is getting better. 05/30 Feels like she is improving. No smoking. Hopes to stop using O2 throught the day time. She will have her cargiver check her O2 sats whith the O2 off while sitting and after a short walk afterward and document to take to her appointmen in a couple of weeks 06/14 no answer, left message 06/14 Van called back, states she is doing really well. Has appt with Dr. Pinzon tomorrow and a mammogram on . She denies any problems at this time, denies SOB. She reports that she has been taking her oxygen off at times and watching her O2 sats which have remained above 90%. Denies and questions or concerns. Agrees to another call next week to see if there are any changes after doctor visit tomorrow. Copies to: URI PINZON MD ; DAVID BENTON Jun 14, 2018 12:39
[2018-06-15] MEDS ORDERED: AMLO-125 PO (16:36)
[2018-06-15] MEDS ORDERED: GUAI600T57 PO (17:11)
--- NOTE | 2018-06-27 11:12 | Transitional Care Management ---
Assessment Visit Type: Telephone Visit Spoke with: Gaudencio Cardiac: WNL Respiratory: WNL Except Respiratory Comment: as home O2 setup and nebs. Review s/s to report. 05/03 Reviewed S/S to report. She gets a little SOB with activity, I encouraged her to pace her activities through the day. 05/23 Disappointed that she isn't getting better faster. Still gets SOB with Activity. Still using O2 and nebs 05/30 Still wearing O2 12/10 hopes [address] the Dr she will take her off during the day. 06/27 still wearing oxygen, continues not to smoke GI: Nutrition: WNL Except GI Comment: 04/26 Enc fluids to keep secretions thin and hi ja for exertional work of breathing. Denies NVD with atb Wt Gain/Loss: WNL Constipation?: No : WNL Musculoskeletal, Exercise: WNL Except Musculoskeletal, Excercise Com: 04/26 little weak but, has energy and wants to do things around the house. Enc not to overexert and schedule rest 05/03 She cleaned her house today. I recommended break periods. 05/22 trying to resume normal living but seems to have to take freq rest periods 05/30 GEts a little SOB when moving around but trys to resume her daily living as musch as possible Mobility/Falls: WNL Integumentary: WNL Except Integumentary Comment: 04/26 cont. to have itchy skin. Enc lotion in a tub like cetaphil or cerve to moisturize 05/23 itching has gotten a little better-continues to us lotion freq 05/30 itching is much improved Feeling of Well Being: WNL Feeling of Well Being Comment: 05/03 I have a caregiver that comes in and helps me with some stuff. We get along pretty well. 05/30 Cont to have a acute care physician and she "helps me out alot. Pain/Management: WNL Except Pain/Management Comment: 04/26 MD evelin hernandez and she has removed it from her meds. can use tylenol Scheduled Follow-Up with Provi: Yes (has appt 05/04 with Jenaro05/23 has been following up with [place] 05/[address] Eason on 06/16) Community Resources/HHC: 04/26 review pulm rehab classes and suggested she consider this for when she is better Needed or Pending Tests: Yes (thyroid fine needle biopsy) Following Discharge Instructio: Yes TCM Discharge Criteria Medication Knowledge: 04/26 has meds filled and ordered refills of previous meds.Has prednisone tapering does on a calendar and med box to ensure she is following direction. 05/23 went over her meds- She has no quietins Disease Management/Concern/Wha: COPD exacerbation Red/Yellow Flags: 05/23 went over the yellow and red flags of COPD Transitional Care Comment: 04/22 discussed COPD, gave handouts, discussed breathing techniques, definition of COPD, green/yellow/red zones. Discussed that she might go home on oxygen, safety for oxygen, needs to stop smoking (family has also been telling her to stop smoking). She seems discouraged about stopping smoking but willing to try. Talked about steroids and that she might go home on them as well as inhalers or nebulizers. She states she has someone that comes in to help her with meals and things around the house. She does not feel that she will need any other assistance when she goes home. Admitted to program. 04/25 pt will likely go home today, she has started prednisone and chantix, education done on both. She states the chantix is helping but she still has thoughts of smoking occationally. She reports being ready for discharge and has no questions. 04/26 Using chantix and doing diversional activities so she doesn't smoke. Had second person present with dc instruct yesterday and states they have no questions on instruct. Needed prompting on noting s/s to report to MD and states she has no s/s. Agree to f/u call next week 05/03 She feels well, cleaned house today with mild SOB. She has an appt with Dr Eason tomorrow. Has not smoked, Chantix is working well. 05/12 no answer, left message 05/23 No answer, left message 05/23 Has been taking Chantex-has not smoked for 1 month. Misses it sometimes but that is getting better. 05/30 Feels like she is improving. No smoking. Hopes to stop using O2 throught the day time. She will have her cargiver check her O2 sats whith the O2 off while sitting and after a short walk afterward and document to take to her appointmen in a couple of weeks 06/14 no answer, left message 06/14 Van called back, states she is doing really well. Has appt with Dr. Eason tomorrow and a mammogram on . She denies any problems at this time, denies SOB. She reports that she has been taking her oxygen off at times and watching her O2 sats which have remained above 90%. Denies and questions or concerns. Agrees to another call next week to see if there are any changes after doctor visit tomorrow. 06/20,2 Called and left messages 06/27 denies any problems or concerns, no changes after last dr appt, mammogram results were good, requested to be discharged from program as things are going well. MAYDAVID Jun 27, 2018 11:12
== END 2018-06-27 15:21 | disposition home or self-care (01) ==
LOC: TCM 12:49
PROVIDERS: ATTEND Nurse Practitioner
DX: Z02.9 Encounter for administrative examinations, unspecified (principal)

== ENCOUNTER → 2018-06-16 | Outpatient (CLI) | payer MEDICARE ==
[2018-04-24 11:09] VITALS: BMI 20.0
[~2018-06-16] MED LIST changes: +DOXY-179 PO; +GUAI600T57 PO; +IPRA3AMP10 IH; +PRED-1 PO; +VARE1TAB3 PO
--- NOTE | 2018-06-17 12:25 | RADIOLOGY IMAGING REPORT ---
FACILITY: [facility] PATIENT NAME: OBEY OVALLE : [id number] MR: [id number] V: [id number] EXAM DATE: [id number] ORDERING PHYSICIAN: URI PINZON TECHNOLOGIST: Radha Ghotra PROCEDURE:BILATERAL DIGITAL SCREENING MAMMOGRAM WITH CAD ASSISTED INTERPRETATION & 3D TOMOSYNTHESIS COMPARISON:Prior mammograms 04/20/17, priors to 01/19/2012. INDICATIONS:SCREENING FINDINGS: The breasts have scattered fibroglandular parenchymal densities. There are no mammographic findings concerning for malignancy. No significant interval change. DIAGNOSTIC CATEGORY 1--NEGATIVE. RECOMMENDATIONS: ROUTINE MAMMOGRAM AND CLINICAL EVALUATION IN 1 YR. IMPRESSION: BIRADS 1: Negative. Dictated by: Good Ocampo on 06/17/2018 at 9:55 Transcribed by: FRANCISCO on 06/17/2018 at 11:27 Approved by: Good Ocampo on 06/17/2018 at 12:24 [facility]
== END ==
LOC: MAMO 00:58
PROVIDERS: ATTEND Family Medicine
DX: Z12.31 Encounter for screening mammogram for malignant neoplasm of breast (principal)
CPT/HCPCS: 77063; 77067

== ENCOUNTER → 2018-07-11 | Outpatient (CLI) | payer MEDICARE ==
[2018-04-24 11:09] VITALS: BMI 20.0
== END ==
LOC: LAB 15:49
PROVIDERS: ATTEND Family Medicine
DX: I10 Essential (primary) hypertension (principal); R59.0 Localized enlarged lymph nodes
CPT/HCPCS: 36415; 82310; 82374; 82435; 82565; 82947; 84132; 84295; 84520

== ENCOUNTER → 2018-07-18 | Outpatient (CLI) | payer MEDICARE ==
[2018-04-24 11:09] VITALS: BMI 20.0
[~2018-07-18] MED LIST changes: +IOPAMIDOL 76% 150 ML INFUS BTL 150 ML ONE
--- NOTE | 2018-07-18 17:25 | RADIOLOGY IMAGING REPORT ---
FACILITY: [facility] PATIENT NAME: Magda Villanueva : 1935 MR: [id number] V: [id number] EXAM DATE: ORDERING PHYSICIAN: URI PINZON TECHNOLOGIST: Location: [facility] Patient: Magda Villanueva : 1935 Visit/Account:[id number] Date of Sevice: 07/18/2018 CT CHEST W & W/O CON History: Hilar lymphadenopathy ADDITIONAL CLINICAL HISTORY: None TECHNIQUE: Contiguous axial images were performed through the chest to the level of the adrenal gla nds with and without IV contrast. Coronal and sagittal reformatting was also performed.Dose Lowerin g Technique One of the following dose optimization techniques was utilized in the performance of this exam: Autom ated exposure control; adjustment of the mA and/or kV according to the patient's size; or use of an i terative reconstruction technique. Specific details can be referenced in the facility's radiology C T exam operational policy. Contrast: Five mL Isovue-370 COMPARISON STUDIES: April 21, 2018. Lungs / Pleura: Diffuse centrilobular emphysema again seen throughout the lungs. Airspace consolid ation in the lingula has mostly resolved and apparently represented infiltrate or atelectasis. There is now coarse linear stranding in the anterior left lower lobe likely representing a small amount of atelectasis. Scattered calcified granulomas again seen throughout the lungs Mediastinum/nodes: There has been marked improvement of the bilateral hilar adenopathy. Heart and vessels: At least moderate atherosclerotic calcifications are identified in the thoracic a chris and branch vessels including the coronary arteries. Musculoskeletal / Body wall: Extensive degenerative changes at both shoulder joints again noted. T here are extensive spondylotic changes in the thoracic spine and visualized upper lumbar spine. Prom inent left thyroid nodule with substernal extension again noted Upper abdomen: negative. IMPRESSION: Diffuse centrilobular emphysema Numerous granulomas throughout the lungs Previous airspace consolidation the lingula has mostly resolved and apparently represented an infiltr ate and/or atelectasis New area of atelectasis in the anterior left lower lobe There is been marked improvement of the bilateral hilar adenopathy. Additional chronic findings as described Report Dictated By: Kia Landa MD at 07/18/2018 5:10 PM Report E-Signed By: Kia Landa MD at 07/18/2018 5:21 PM WSN:[id number]
== END ==
LOC: CT 01:24
PROVIDERS: ATTEND Family Medicine
DX: J43.2 Centrilobular emphysema (principal); R59.0 Localized enlarged lymph nodes
CPT/HCPCS: 71270; Q9967

== ENCOUNTER → 2018-08-11 | Outpatient (CLI) | payer MEDICARE ==
[2018-04-24 11:09] VITALS: BMI 20.0
[~2018-08-11] MED LIST changes: -IOPAMIDOL 76% 150 ML INFUS BTL 150 ML ONE; +LISI-355 PO
== END ==
LOC: RESP 02:32
PROVIDERS: ATTEND Family Medicine
DX: J98.4 Other disorders of lung (principal)
CPT/HCPCS: 94060; 94726; 94729